=== PATIENT | female | born 1985 | race Asian ===

== ENCOUNTER 2022-07-19 06:23 | Inpatient (IN) | payer OTHER ==
[2022-07-18 12:33] LABS: SARS-CoV-2 Antigen Rapid Res Negative (Negative)
[2022-07-19] MEDS: Ringers Lactate 1,000 ML IV SCH ×2 (07:25→10:55)
[2022-07-19] MEDS ORDERED: CARBOPROST TROME 250 MCG/ML IM PRN (07:54)
[2022-07-19] MEDS ORDERED: BUTORPHANOL 1 MG/ML INJ IV PRN (07:54)
[2022-07-19] MEDS ORDERED: METHYLERGONOVINE 0.2MG/ML AMP IM PRN (07:54)
[2022-07-19] MEDS ORDERED: PROMETHAZINE INJ 25 MG/ML AMP IM PRN (07:54)
[2022-07-19] MEDS ORDERED: OXYTOCIN/LR 20 UNIT/1,000 ML BAG IV SCH (08:00)
[2022-07-19] MEDS ORDERED: Ringers Lactate 1,000 ML IV PRN (08:15)
[2022-07-19 08:42] LABS: Urine Bilirubin NEGATIVE (Negative); Urine Blood Negative (Negative); Urine Clarity Clear (Clear); Urine Color Light-Yellow (Yellow); Urine Glucose NEGATIVE (Negative); Urine Protein NEGATIVE (Negative); Urine Urobilinogen Normal (Normal)
[2022-07-19 08:42] LABS: Absolute Lymphocytes (CBC) 1.5 K/uL (0.7-4.9); Hematocrit 33.3 % (36.0-45.0); Lymphocytes % 15.6 % (15.3-44.8); MCV 68.2 fL (80-100); RBC Red Blood Cell Count 4.89 M/uL (3.86-4.86)
[2022-07-19 09:30] LABS: Blood Morphology Comment NOTED (NOT SEEN); Platelet Estimate ADEQ; White Blood Cell Scan OK (OK)
[2022-07-19 09:31] LABS: Anisocytosis 2+
[2022-07-19 09:41] VITALS: BMI 31.1
[2022-07-19] MEDS ORDERED: LIDOCAINE 1% MPF 30 ML VIAL ONE (14:37)
[2022-07-19] MEDS ORDERED: miSOPROStoL 100 MCG TAB ONE (15:00)
[2022-07-19] MEDS ORDERED: Oxycodone HCl/Acetaminophen 1 TAB TAB PO PRN ×2 (15:50→15:54)
[2022-07-19] MEDS ORDERED: ONDANSETRON 4 MG (ODT) TAB PO PRN (15:50)
[2022-07-19] MEDS ORDERED: ACETAMINOPHEN 500 MG TAB PO PRN (15:50)
[2022-07-19] MEDS ORDERED: DOCUSATE NA/SENNA CONC 1 TAB PO PRN (15:50)
[2022-07-19] MEDS ORDERED: IBUPROFEN 600 MG TAB PO PRN (15:56)
--- NOTE | 2022-07-19 20:08 | DN ---
Date of Procedure: 07/19/2022 Surgeon: Chan Chavarria Covering Physician: Dr. Chan Chavarria. Preoperative Diagnoses: 1.Intrauterine 40 weeks and 5 days of gestation. 2.Well-controlled gestational diabetes. 3.Advanced maternal age. Postoperative Diagnoses: 1.Intrauterine 40 weeks and 5 days of gestation. 2.Well-controlled gestational diabetes. 3.Advanced maternal age. 4.Normal vaginal delivery. Procedure Performed: Induction of labor with Pitocin. Artificial rupture of membrane and normal vag inal delivery and delivery of the placenta intact. Anesthesia: 1% Xylocaine local. Estimated Blood Loss: 500 cc. Finding: Normal controlled vaginal delivery with a nuchal cord around the neck x2 loosely and reduce d overhead and delivery was controlled. Baby presented SHELDON, prone to OA position. Placenta delivere d intact. This is a male baby, scores 9 and 9, weight 7 pounds 14 ounces. No complications. Procedure In Detail: Beata Samson is an advanced maternal age, 37-year-old female, G3, P2, due d ate 07/14/2022, with a well-controlled gestational diabetes and advanced maternal age status, admitte d for induction of labor. The cervix is favorable. She was admitted early in the morning around 7 a .m. and I interviewed her and took her history around 8 a.m. and started the Pitocin. Her contractio ns became regular. At that time, the baby's head was somewhat high. Therefore, I asked the patient to urinate to deflate her bladder and given a chance of Pitocin to work. After many hours later, ted y's head has descended and around 2-3 cm dilated, 50% effaced, and -2 station. I had performed our a rtificial rupture of membrane showing clear fluid. A contraction was up every 2 to 3 minutes apart. Quickly she progressed into active phase of labor and reached complete cervical dilatation. She had tremendous amount of urge to push. Her legs were placed up in stirrups. Vaginal area prepped and w ashed by using diluted Betadine solution and she was draped in a sterile fashion. With a gentle supp ort on the perineum, baby's head delivered, followed by reduction of the loose nuchal cord over the b jovanni's head twice and delivery of the anterior shoulder, which is the right shoulder followed by poste rior shoulder, body, and delivery completed. The baby's nose and mouth well bulb suctioned, followed by clamping and cutting of the cord. The baby passed on to the nursing staff and cord blood obtaine d. Placenta delivered intact in Schultze presentation. Evaluation of the perineum showing a second- degree laceration. Therefore, 1% Xylocaine was used locally followed by 2-0 chromic suture in the us ua repair fashion. There were no complications. Gentle fundal massage was done. Prophylactic 800 mcg of Cytotec was given rectally. The patient tolerated the procedure well. A well baby boy delive red. scores are 9 and 9. Weight 7 pounds 14 ounces. BW/MODL Voice ID: [id number] Report ID: [id number]
[2022-07-20 06:36] LABS: Hematocrit 26.3 % (36.0-45.0)
[2022-07-20 15:52] VITALS: BP 114/70; TEMP 98.3
[2022-07-20 23:45] LABS: RPR (Rapid Plasma Reagin) NON-REACT (NON-REACT)
--- NOTE | 2022-07-21 03:41 | DS ---
Date of Discharge: 07/20/2022 Covering Physician: Dr. Chan Chavarria. Discharge Diagnoses: 1.Intrauterine 40 weeks and 5 days of gestation, delivered. 2.Diet-controlled gestational diabetes. 3.Advanced maternal age. Hospital Course: Beata is a 37-year-old female G3, P2, due date of 07/14, with a history of d iet-controlled gestational diabetes. She was under the care of all the OB and her blood sugar was in good control and she is a very compliant patient. She has passed her due date and requested inducti on of labor. She has a favorable cervix. 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 Her labor progresse d normally. Baby was in excellent condition for heart tones and overall condition was satisfac tory. She had a normal vaginal delivery without any complications. She gave to a male baby, A pgar scores of 9 and 9. Weight 7 pounds 14 ounces. Maternal blood type is O positive. H and H 10.8 and 33.3. , she was doing quite well. I examined her in person, her uterus was firm and her vaginal lochia is minimum. She is . education was done at the [facility] and also she was sent home in good and stable conditions. Disposition: Discharge to home. Condition: Stable. Prescriptions: Ibuprofen 800 mg #20, 1 tab p.o. t.i.d. p.r.n. for pain. Diet: She was asked to still follow her diabetes diet and future plans and modifying diet will be di scussed during the followup. Followup: See Dr. Zelaya in 4 to 6 weeks. BW/MODL Voice ID: [id number] Report ID: [id number]
== END 2022-07-20 17:35 | disposition home or self-care (01) | DRG 807 ==
LOC: 2ND-WC 06:23
PROVIDERS: ADMIT Obstetrics & Gynecology; ATTEND Obstetrics & Gynecology
PROC: 10E0XZZ Delivery of Products of Conception, External Approach (ICD-10-PCS; principal; 2022-07-19)
PROC: 0KQM0ZZ Repair Perineum Muscle, Open Approach (ICD-10-PCS; 2022-07-19)
PROC: 10907ZC Drainage of Amniotic Fluid, Therapeutic from Products of Conception, Via Natural or Artificial Opening (ICD-10-PCS; 2022-07-19)
PROC: 3E033VJ Introduction of Other Hormone into Peripheral Vein, Percutaneous Approach (ICD-10-PCS; 2022-07-19)
DX: O24.420 Gestational diabetes mellitus in childbirth, diet controlled (principal); Z37.0 Single live birth; O48.0 Post-term pregnancy; O69.81X0 Labor and delivery complicated by cord around neck, without compression, not applicable or unspecified; O70.1 Second degree perineal laceration during delivery; Z3A.40 40 weeks gestation of pregnancy; Z20.822 Contact with and (suspected) exposure to COVID-19
CPT/HCPCS: 36415; 81003; 85014; 85018; 85025; 86592; 86901; 87811; J2001; J2210; J2590; J7120